=== PATIENT | female | born 1970 | race African-American/Black ===

== ENCOUNTER → 2016-10-13 | Day surgery (SDC) | payer BC ==
[~2016-10-13] MED LIST: MULTI VITAMIN1 EACH PO; WELLBUTRIN
--- NOTE | ~2016-10-13 | EKG ---
PATIENT: TEO VILLALOBOS UNIT #: [id number] Ventricular Rate: 81 BPM Atrial Rate: 81 BPM P-R Interval: 146 ms QRS Duration: 74 ms Q-T Interval: 374 ms QTC Calculation(Bezet): 434 ms P Helix: 64 degrees Calculated R Helix: 35 degrees Calculated T Helix: 37 degrees Diagnosis Line: Normal sinus rhythm with sinus arrhythmia Diagnosis Line: Normal ECG Diagnosis Line: No previous ECGs available Diagnosis Line: Confirmed by ISIS MILLER MD ([id number]) on 10/14/2016 Diagnosis Line: 3:30:31 PM INTERPRETING MD: PAUL BA
--- NOTE | ~2016-10-13 | OR ---
Unit #: [id number] #: [id number] Patient: TEO VILLALOBOS [id number] [address] [place], [place] [address] [id number] O MR#: [id number] NAME: TEO VILLALOBOS ROOM: Date of Procedure: 10/13/2016 Admission Date: 10/13/2016 Surgeon: Mila Swain D.P.M. : 1970 Attending Physician: Mila Swain D.P.M. Referring Physician: Mila Swain D.P.M. Primary Care Physician: Melia Booth OPERATIVE REPORT PREOPERATIVE DIAGNOSIS Plantar fasciitis, left foot. POSTOPERATIVE DIAGNOSIS Plantar fasciitis, left foot. PROCEDURE PERFORMED Endoscopic plantar fasciotomy, left foot. ANESTHESIA General with local. INDICATIONS FOR PROCEDURE The patient presented with chief complaint of heel pain for several months. She had stated she was experiencing a decrease in activity level. She had undergone conservative care consisting of modified shoes, orthotics, injections, NSAIDs, rest, physical therapy with little to no relief. She requested more permanent means of correction. She was counseled on outpatient surgery and her possible complications of surgery including but not limited to overcorrection, undercorrection, delayed healing, infection, recurrence of the deformity, need for future surgeries. She elected to have outpatient procedure performed. DESCRIPTION OF PROCEDURE The patient underwent IV sedation and left foot and ankle were prepped and draped in usual aseptic manner. Ankle tourniquet was inflated to 250 mmHg. A stab incision was made medial plantarly approximately 1 cm using a 10-blade. The incision was deepened via sharp and blunt dissection. A blunt probe was used to make a channel underneath the plantar fascia and an exit wound on the plantar lateral aspect of the heel. A cannula was then inserted underneath the plantar fascia ligament. The camera was inserted medially. The plantar fascia was brought onto the TV monitor and plantar fascia was identified. Sharp instrumentation was used lateral incision and lateral port of the cannula to visualize the medial one-third band of the plantar fascia ligament. It was resected using sharp and blunt dissection. The area was then flushed with copious amounts of antibiotic saline solution. All instrumentation was removed from the surgical site. Skin was reapproximated using simple interrupted fashion 5-0 nylon moving on laterally. Tourniquet was released. All digits were returned in normal coloration within several seconds of its release. Dry sterile compressive dressing was applied. The patient apparently tolerated the procedure well. Unit #: [id number] #: [id number] Patient: TEO VILLALOBOS Dictated by... Chantell Whitley/maryam TD: 10/15/2016 05:25 JOB #: [id number] OPERATIVE REPORT Page 1 of 1 X Ion Swain PROCEDURE OPERATIVE NOTE
[2016-10-13 11:31] LABS: BASOPHIL# 0.1 X10e3 (0-0.3); BASOPHIL% 0.8 % (0-2.5); EOSINOPHIL# 0.2 X10e3 (0-0.7); EOSINOPHIL% 2.1 % (0.0-7.0); HEMATOCRIT 38.9 % (35.0-45.0); HEMOGLOBIN 12.7 gm/dL (12.0-16.0); LYMPHOCYTE# 1.9 X10e3 (1.0-3.5); LYMPHOCYTE% 25.2 % (17.0-45.0); MEAN CELL VOLUME 96.1 FL (83-96); MEAN CORPUSCULAR HEMOGLOBIN 31.4 PG (28-34); MEAN CORPUSCULAR HGB CONC 32.6 g/dL (30-36); MEAN PLATELET VOLUME 7.6 FL (6.5-11.5); MONOCYTE# 0.5 X10e3 (0-1.0); MONOCYTE% 6.9 % (3.0-12.0); PLATELET COUNT 336 X10e3 (140-420); RED BLOOD COUNT 4.05 X10e (3.90-5.30); RED CELL DISTRIBUTION WIDTH 13.1 % (11.0-15.5); WHITE BLOOD COUNT 7.6 X10e3 (4.0-10.5)
[2016-10-13 11:33] LABS: DIFF IND NO
[2016-10-13 12:06] LABS: BUN/CREATININE RATIO 15.71; CALCIUM SERUM 9.2 mg/dL (8.4-10.2); CREATININE SERUM 0.7 mg/dL (0.6-1.4); GLOM FILT RATE Estimated 120.4 mL/min (>60)
== END | disposition home or self-care (01) ==
LOC: CSUR 10:52
PROVIDERS: Podiatrist Foot & Ankle Surgery
DX: M72.2 Plantar fascial fibromatosis (principal); K21.9 Gastro-esophageal reflux disease without esophagitis; F17.210 Nicotine dependence, cigarettes, uncomplicated; Z79.899 Other long term (current) drug therapy; Z98.51 Tubal ligation status
CPT/HCPCS: 80048; 85025; 93005; J0690; J2250; J2270; J2405; J3010; J3301